=== PATIENT | male | born 1960 | race African-American/Black ===

== ENCOUNTER 2019-03-25 09:39 | Emergency (ER) | payer MEDICAID, OTHER ==
[2019-03-25 10:20] VITALS: BP 112/82
--- NOTE | 2019-03-25 10:42 | UC ---
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 Has had surgeries, has tried topical nitroglycerine and possibly bethanecol without relief of symptoms. Botox has failed. He plans to follow up in [place]. Passed a hard stool today without blood, with severe spasm to follow. 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 No vomiting. Regularly uses stool softeners and guards against constipation. - History of Current Complaint Chief Complaint: UCGI Stated Complaint: PERSONAL Time Seen by Provider: 03/25/19 10:33 Hx Obtained From: Patient Onset/Duration: Sudden Onset, Lasting Hours Timing: Constant Severity Initially: Severe Severity Currently: Severe Pain Intensity: 10 Location: Other - anal pain with radiation to the left scrotum Radiates: Yes Radiates to: Inguinal Character: Colicy, Cramping, Sharp Aggravating Factor(s): Movement Alleviating Factor(s): Position Associated Signs And Symptoms: Positive: Negative Similar Episode/Dx As:: anal spasm - Allergies/Home Medications Allergies/Adverse Reactions: Allergies Allergy/AdvReac Type Severity Reaction Status Date / Time onion Allergy "I can't Verified 03/25/19 10:13 breathe. Everything closes up." pineapple Allergy Hives Verified 03/25/19 10:13 Home Medications: Home Medications Ibuprofen TAB* [Advil TAB*] 800 mg PO Q8H PRN 03/25/19 [History Confirmed ] Methimazole TAB* [Tapazole TAB*] 5 mg PO TID 03/25/19 [History Confirmed ] Vitamin THERAPEUTIC TAB* [Theragran TAB*] 1 tab PO DAILY 03/25/19 [History Confirmed 03/25/19] PMH/Surg Hx/FS Hx/Imm Hx Previously Healthy: No Endocrine History: Hyperthyroidism Cancer History: Colorectal Cancer, Prostate Cancer, Other - liver cancer - Surgical History Surgical History: Yes Surgery Procedure, Year, and Place: Anal Fissure, 2018 2017; Cholecystectomy, 2014; Prostatectomy, 2009; Liver Lobectomy, 1994; - Family History Known Family History: Positive: Non-Contributory - Social History Occupation: Employed Full-time Lives: With Family - currently living in [place], assuming custody of his daughters, plans to return to [place]. Alcohol Use: None Substance Use Type: None Smoking Status (MU): Heavy Every Day Tobacco Smoker Type: Cigarettes Amount Used/How Often: ~1/2 PPD Length of Time of Smoking/Using Tobacco: Since Age 13 Review of Systems All Other Systems Reviewed And Are Negative: Yes Constitutional: Positive: Negative Skin: Positive: Negative Eyes: Positive: Negative ENT: Positive: Negative Gastrointestinal: Positive: Other - anal pain Genitourinary: Positive: Other - pain in left scrotal area. Musculoskeletal: Positive: Negative Neurological: Positive: Negative Psychological: Positive: Anxious Is Patient Immunocompromised?: No Physical Exam Triage Information Reviewed: Yes Appearance: Well-Appearing, Pain Distress - moderate to severe, Thin Vital Signs: Initial Vital Signs Temp 97.7 F 03/25/19 10:11 Pulse 88 03/25/19 10:11 Resp 20 03/25/19 10:11 BP 112/82 03/25/19 10:11 Pulse Ox 100 03/25/19 10:11 Eye Exam: Normal Dental Exam: Normal Neck: Positive: Supple, Nontender Respiratory: Positive: Lungs clear, Normal breath sounds Cardiovascular: Positive: RRR, No Murmur Abdomen Description: Positive: Nontender, No Organomegaly, Soft, Other: - scars RUQ and midline Anal sphincter with increased tone, no mass, no stool in rectum. no blood obtained. No active fissure. Bowel Sounds: Positive: Present Musculoskeletal Exam: Normal Neurological Exam: Normal Abd Pain Male Course/Dx - Course Course Of Treatment: lorazepam given here for possible relief of spasm. Small number of oxycodone pills given. - Differential Dx/Clinical Impression Differential Diagnosis/HQI/PQRI: Constipation, Other - anal fissures, anal spasm Provider Diagnosis: Anal sphincter spasm, Anal fissure Discharge - Sign-Out/Discharge Documenting (check all that apply): Patient Departure All imaging exams completed and their final reports reviewed: No Studies - Discharge Plan Condition: Stable Disposition: HOME Prescriptions: LORazepam TAB(*) [Ativan 1 MG TAB (*)] 1 mg PO TID PRN #10 tab MDD 3 PRN Reason: Spasms oxyCODONE TAB* [Roxycodone TAB 5 mg*] 5 mg PO Q6H PRN #10 tab MDD 4 PRN Reason: Pain - Moderate To Severe Patient Education Materials: Anal Fissure (ED) Forms: *Work Release Referrals: No Primary Care Phys,NOPCP [Primary Care Provider] - - Billing Disposition and Condition Condition: STABLE Disposition: Home
[2019-03-25] MEDS ORDERED: Diazepam TAB(*) 5 MG PO ONE (10:53)
[2019-03-25] MEDS: LORazepam TAB(*) 1 MG PO ONE (11:02)
== END 2019-03-25 11:18 | disposition home or self-care (01) ==
LOC: UCCORT 09:39
DX: K59.4 Anal spasm (principal); K60.2 Anal fissure, unspecified; F17.210 Nicotine dependence, cigarettes, uncomplicated; Z85.038 Personal history of other malignant neoplasm of large intestine; Z85.048 Personal history of other malignant neoplasm of rectum, rectosigmoid junction, and anus; Z85.46 Personal history of malignant neoplasm of prostate; Z85.05 Personal history of malignant neoplasm of liver
CPT/HCPCS: 99202; A9270-GY; G0463

== ENCOUNTER 2019-04-26 14:34 | Emergency (ER) | payer OTHER ==
[2019-04-26 15:03] VITALS: BP 157/73
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
== END 2019-04-26 15:31 | disposition home or self-care (01) ==
LOC: UCCORT 14:34
DX: L02.01 Cutaneous abscess of face (principal); Z91.018 Allergy to other foods; F17.210 Nicotine dependence, cigarettes, uncomplicated
CPT/HCPCS: 99212; G0463

== ENCOUNTER 2019-05-06 11:30 | Emergency (ER) | payer OTHER ==
--- OUTSIDE RECORDS SUMMARY | 2019-05-06 11:39 | XMS REPORT | Continuity of Care Document ---
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 LORRAINE montgomery PayID: [id number] [address] [place] [address] Family History Date Family Member(s) Observation Comments : (age 97 Years) Father due to Lung Cancer : (age 102 Years) Mother due to Natural Causes Social History Type Date Description Comments Sex Unknown Tobacco Use Start: Unknown currently smokes 1/2 Pack Daily ETOH Use Denies alcohol use Allergies, Adverse Reactions, Alerts Description No Known Drug Allergies Medications Description No Active Medications Vital Signs Date Vital Result Comment 04/30/2019 10:21am Weight 169.00 lb Height 71 inches 5'11" BMI (Body Mass Index) 23.6 kg/m2 BP Systolic 111 mmHg BP Diastolic 66 mmHg Heart Rate 69 /min O2 % BldC Oximetry 97 % Body Temperature 98.6 F Pain Level 0
--- OUTSIDE RECORDS SUMMARY | 2019-05-06 11:39 | XMS REPORT | Continuity of Care Document ---
:1960 External Reference #:[id number] Author Name Nasir Briceño Care Team Providers Name Role Phone Arie De La Torre M.D. Care Team Information Drafter Electronic Unavailable Payers Date Identification Numbers Payment Provider Subscriber Policy Number: [id number] Rafi Cabrera PayID: [id number] [address] [place] [address] Problems Active Problems Provider Date Cellulitis and abscess of face Arie De La Torre M.D. 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 Tobacco Use Start: Unknown Current Cigarette Smoker 1 Pack Daily Allergies, Adverse Reactions, Alerts Description No Known Drug Allergies Medications Active Medications SIG Qnty Indications Ordering Provider Date Fluoxetine HCL Take One Capsule By Unknown 20mg Mouth Every Morning Capsules For Depression And Anxiety Hydroxyzine HCL Take 1 2 Tablets By Unknown 25mg Mouth Two Times A Tablets Day as Needed For Anxiety Panic Attacks Prazosin HCL Take 1 Capsule By Unknown 1mg Mouth For 3 Days Capsules Then Try Increased Dose Take 1 3 Capsules By Mouth AT Bedtime as Directed For Nightmares Vital Signs Date Vital Result Comment 04/27/2019 3:35pm Height 71 inches 5'11" Weight 175.00 lb Heart Rate 68 /min BP Systolic 128 mmHg BP Diastolic 80 mmHg Respiratory Rate 18 /min Pain Level 8 BMI (Body Mass Index) 24.4 kg/m2 Plan of Treatment 04/27/2019 - Arie De La Torre M.D.[id number] Cellulitis of faceComments:Patient on Keflex, acute cellulitis. No evidence of abscess. I would wait 36-48 hours to decide ifanything else needs to be done he may need modification of his antibiotics. The Cultures Done Yesterday. Otherwise Recheck When Necessary
--- NOTE | 2019-05-06 12:08 | ED ---
GI/ HPI - HPI Summary HPI Summary: 58 yr old male with the complaint of rectal pain, testicular pain. Onset this morning when he had a BM. He has a history of anal fissure. His pain is 10/10 , and he cannot get comfortable. He has associated nausea, but not vomiting. No diarrhea. He has had pain since BM this morning that has gotten progressivley worse. He has a history of colon cancer, and prostate cancer with liver cancer. He is from [place], [place]. Denies fever and chills. - History of Current Complaint Chief Complaint: UCSkin Time Seen by Provider: 05/06/19 11:51 Stated Complaint: PERSONAL Pain Intensity: 10 - Allergy/Home Medications Allergies/Adverse Reactions: Allergies Allergy/AdvReac Type Severity Reaction Status Date / Time onion Allergy "I can't Verified 04/26/19 14:56 breathe. Everything closes up." pineapple Allergy Hives Verified 04/26/19 14:56 Home Medications: Home Medications Clindamycin HCl 150 mg PO TID 05/06/19 [History Confirmed 05/06/19] PMH/Surg Hx/FS Hx/Imm Hx Endocrine/Hematology History: Reports: Hx Thyroid Disease - Hyperthyroidism - Cancer History Cancer Type, Location and Year: Colon 2011, Prostate 2009, Liver 1994 - Surgical History Surgery Procedure, Year, and Place: Anal Fissure, 2018 2017; Cholecystectomy, 2014; Prostatectomy, 2009; Liver Lobectomy, 1994; Infectious Disease History: No Infectious Disease History: Denies: Traveled Outside the [place] in Last 30 Days - Family History Known Family History: Positive: Non-Contributory - Social History Occupation: Employed Part-time Alcohol Use: Rare Substance Use Type: Reports: None Smoking Status (MU): Heavy Every Day Tobacco Smoker Type: Cigarettes Amount Used/How Often: ~1/2 PPD Length of Time of Smoking/Using Tobacco: Since Age 13 Have You Smoked in the Last Year: Yes Review of Systems Constitutional: Negative Positive: Nausea, Other - rectal pain Positive: other - testicular pain All Other Systems Reviewed And Are Negative: Yes Physical Exam Triage Information Reviewed: Yes Vital Signs On Initial Exam: Initial Vitals Temp Pulse Resp BP Pulse Ox 98.1 F 81 20 136/55 100 05/06/19 11:39 05/06/19 11:39 05/06/19 11:39 05/06/19 11:39 05/06/19 11:39 Vital Signs Reviewed: Yes Appearance: Positive: Pain Distress Skin: Positive: Warm, Skin Color Reflects Adequate Perfusion Head/Face: Positive: Normal Head/Face Inspection Eyes: Positive: EOMI ENT: Positive: Normal ENT inspection Neck: Positive: Nontender Respiratory/Lung Sounds: Positive: Clear to Auscultation, Breath Sounds Present Cardiovascular: Positive: RRR. Negative: Murmur Abdomen Description: Positive: Nontender, Other: - rectal exam without any obvious fissure or hemmeroids. He has tenderness in the rectum on digital exam. No stool or blood seen on glove.. Negative: Distended Male Genital Exam: Positive: Other - both testicles are without tenderness, no swelling.. Negative: Scrotum Tenderness (R), Scrotum Tenderness (L), Testicular Tenderness (R), Testicular Tenderness (L) Musculoskeletal: Positive: Strength/ROM Intact Neurological: Positive: Sensory/Motor Intact, Alert, Oriented to Person Place, Time, CN Intact II-III, Normal Gait, Speech Normal Psychiatric: Positive: Normal Diagnostics - Vital Signs Vital Signs Temp Pulse Resp BP Pulse Ox 05/06/19 11:39 98.1 F 81 20 136/55 100 - Laboratory Lab Statement: Any lab studies that have been ordered have been reviewed, and results considered in the medical decision making process. GIGU Course/Dx - Course Course Of Treatment: 58 yrold with rectal pain and testicular pain. Transfer to [facility] for further evaluation. I have called the [facility] and await . Provider, Cristal has been contacted at the [facility] and they are awaiting the patient. - Diagnoses Provider Diagnoses: Rectal pain, Testicular pain, unspecified Discharge - Sign-Out/Discharge Documenting (check all that apply): Patient Departure All imaging exams completed and their final reports reviewed: No Studies - Discharge Plan Condition: Good Disposition: TRANS HIGHER LVL OF CARE FAC Referrals: No Primary Care Phys,NOPCP [Primary Care Provider] - - Billing Disposition and Condition Condition: GOOD Disposition: Trans Higher Lvl of Care Fac
[2019-05-06 12:19] VITALS: BP 124/93
== END 2019-05-06 12:16 | disposition short-term general hospital (02) ==
LOC: UCCORT 11:30
DX: K62.89 Other specified diseases of anus and rectum (principal); N50.812 Left testicular pain; N50.811 Right testicular pain; Z85.038 Personal history of other malignant neoplasm of large intestine; Z85.46 Personal history of malignant neoplasm of prostate; Z85.05 Personal history of malignant neoplasm of liver; F17.210 Nicotine dependence, cigarettes, uncomplicated
CPT/HCPCS: 99213; G0463

== ENCOUNTER 2019-08-27 22:26 | Observation (INO) | payer OTHER ==
--- NOTE | 2019-08-27 23:40 | ED ---
Seizure - HPI Summary HPI Summary: Patient transferred from [place] for further evaluation of new onset seizures 2. No prior history of seizures. Patient was found unresponsive at home by family and taken by EMS to:. Patient states he remembers "coming to" at [facility], and remembers the EMS ride here to [place]. Patient is alert and oriented responding appropriately. Patient complains only of being tired. Denies fever, cough, sore throat, CP, SOB, N/3/D, abdominal pain, change in urine, change in BM. Medical history is current colon cancer, states not currently being treated. Patient states he does not see a doctor very often. Denies EtOH or recreational drug use. - History Of Current Complaint Chief Complaint: EDSeizure Time Seen by Provider: 08/27/19 22:52 Hx Obtained From: Patient Onset/Duration: Sudden Onset Severity Of Seizure: Self-Limited Character: Generalized Tonic Alleviating Factor(s): Spontaneous Resolution - Allergies/Home Medications Allergies/Adverse Reactions: Allergies Allergy/AdvReac Type Severity Reaction Status Date / Time onion Allergy "I can't Verified 04/26/19 14:56 breathe. Everything closes up." pineapple Allergy Hives Verified 04/26/19 14:56 PMH/Surg Hx/FS Hx/Imm Hx Endocrine/Hematology History: Reports: Hx Thyroid Disease - Hyperthyroidism Cardiovascular History: Denies: Hx Pacemaker/ICD History: Denies: Hx Dialysis Sensory History: Denies: Hx Eye Prosthesis Opthamlomology History: Denies: Hx Legally Blind EENT History: Denies: Hx Deafness Neurological History: Denies: Hx Dementia - Cancer History Cancer Type, Location and Year: Colon 2011, Prostate 2009, Liver 1994 - Surgical History Surgery Procedure, Year, and Place: Anal Fissure, 2018 2017; Cholecystectomy, 2014; Prostatectomy, 2009; Liver Lobectomy, 1994; Infectious Disease History: No Infectious Disease History: Denies: Traveled Outside the [place] in Last 30 Days - Family History Known Family History: Positive: Non-Contributory - Social History Alcohol Use: None Substance Use Type: Reports: None Smoking Status (MU): Heavy Every Day Tobacco Smoker Type: Cigarettes Amount Used/How Often: ~1/2 PPD Length of Time of Smoking/Using Tobacco: Since Age 13 Have You Smoked in the Last Year: Yes Review of Systems Positive: Fatigue Eyes: Negative ENT: Negative Cardiovascular: Negative Respiratory: Negative Gastrointestinal: Negative Genitourinary: Negative Musculoskeletal: Negative Skin: Negative Neurological: Negative Psychological: Normal All Other Systems Reviewed And Are Negative: Yes Physical Exam - Summary Physical Exam Summary: Neuro exam normal. Patient alert, coherent and oriented. Triage Information Reviewed: Yes Vital Signs On Initial Exam: Initial Vitals Temp Pulse Resp BP Pulse Ox 99.3 F 99 19 108/66 98 08/27/19 22:26 08/27/19 22:26 08/27/19 22:26 08/27/19 22:26 08/27/19 22:26 Vital Signs Reviewed: Yes Appearance: Positive: Well-Appearing Skin: Positive: Warm Head/Face: Positive: Normal Head/Face Inspection Eyes: Positive: Normal ENT: Positive: Normal ENT inspection Dental: Negative: Dental Fracture @, Bleeding Neck: Positive: Supple Respiratory/Lung Sounds: Positive: Clear to Auscultation Cardiovascular: Positive: Normal Abdomen Description: Positive: Nontender Musculoskeletal: Positive: Normal Neurological: Positive: Normal Psychiatric: Positive: Normal AVPU Assessment: Alert - Evi Coma Scale Best Eye Response: 4 - Spontaneous Best Motor Response: 6 - Obeys Commands Best Verbal Response: 5 - Oriented Coma Scale Total: 15 Procedures - Sedation Patient Received Moderate/Deep Sedation with Procedure: No Diagnostics - Vital Signs Vital Signs Temp Pulse Resp BP Pulse Ox 08/27/19 23:00 76 32 100/59 95 08/27/19 22:32 96 15 97 08/27/19 22:30 96 108/66 97 08/27/19 22:26 99.3 F 99 19 108/66 98 - Laboratory Result Diagrams: 08/28/19 00:20 08/28/19 00:20 Lab Statement: Any lab studies that have been ordered have been reviewed, and results considered in the medical decision making process. Course/Dx - Course Course Of Treatment: Patient transferred from [place] for further evaluation of new onset seizures 2. No prior history of seizures. Patient was found unresponsive at home by family and taken by EMS to:. Patient states he remembers "coming to" at [facility], and remembers the EMS ride here to [place]. Patient is alert and oriented responding appropriately. Patient complains only of being tired. Denies fever, cough, sore throat, CP, SOB, N/3/D , abdominal pain, change in urine, change in BM. Medical history is current colon cancer, states not currently being treated. Patient states he does not see a doctor very often. Denies EtOH or recreational drug use. Vital signs within normal limits. Labs unremarkable. No further seizures here in the ED. Discussed patient with neurology Dr. Mensah who recommended admission to hospitalist for further evaluation. Patient admitted to hospitalist for further evaluation. - Diagnoses Provider Diagnoses: Seizure Discharge ED - Sign-Out/Discharge Documenting (check all that apply): Patient Departure - Discharge Plan Condition: Stable Disposition: ADMITTED TO [facility] Referrals: No Primary Care Phys,NOPCP [Primary Care Provider] - - Billing Disposition and Condition Condition: STABLE Disposition: Admitted to [facility]
[2019-08-28 00:29] LABS: ABS Eosinophils 0.2 10^3/ul (0-0.6); ABS Lymphocytes 2.3 10^3/ul (1.0-4.8); ABS Monocytes 0.3 10^3/ul (0-0.8); Eosinophil % 5.9 %; Hematocrit 41 % (42-52); Hemoglobin 13.1 g/dL (14.0-18.0); Lymphocyte % 58.3 %; Mean Corpuscular HGB Conc 32 g/dL (31-36); Mean Corpuscular Hemoglobin 26 pg (27-31); Mean Corpuscular Volume 81 fL (80-94); Mean Platelet Volume 8.9 fL (7.4-10.4); Nucleated Red Blood Cells % 0.3; Platelet Count 175 10^3/uL (150-450); Red Blood Count 5.08 10^6 /uL (4.18-5.48); Red Cell Distribution Width 14 % (10-15); White Blood Count 3.9 10^3/uL (3.5-10.8)
[2019-08-28 00:45] LABS: ALT 34 U/L (7-52); AST 18 U/L (13-39); Albumin 3.4 g/dL (3.2-5.2); Albumin/Globulin Ratio 1.7 (1-3); Alkaline Phosphatase 146 U/L (34-104); Anion Gap 4 mmol/L (2-11); BUN/Creatinine Ratio 17.3 (8-20); Blood Urea Nitrogen 14 mg/dL (6-24); C Reactive Protein 6.88 mg/L (<8.01); CO2 Carbon Dioxide 27 mmol/L (22-32); Calcium 8.9 mg/dL (8.6-10.3); Chloride 109 mmol/L (101-111); EGFR Non-African American 97.5 (>60); Glucose 102 mg/dL (70-100); Phosphorus 4.4 mg/dL (2.5-5.0); Potassium 3.9 mmol/L (3.5-5.0); Sodium 140 mmol/L (135-145); Total Protein 5.4 g/dL (6.4-8.9)
[2019-08-28 00:53] LABS: Alcohol < 10 mg/dL (<10); Salicylate < 2.50 mg/dL (<30)
[2019-08-28 01:45] LABS: Acetaminophen < 15 mcg/mL
[2019-08-28] MEDS ORDERED: NS 0.9% 1000 ML** 1,000 ML IV SCH (02:30)
[2019-08-28 03:13] LABS: Free T4 3.76 ng/dL (0.61-1.12)
--- NOTE | 2019-08-28 05:12 | HP ---
ADMISSION HISTORY AND PHYSICAL: DATE OF ADMISSION: 08/28/19 CHIEF COMPLAINT: Found in altered mental status. HISTORY OF PRESENT ILLNESS: This is a 58-year-old male with past medical history of liver cancer; prostate cancer, for which he received some chemotherapy in the past; colon cancer; and history of hyperthyroidism, was sent from [facility] due to new onset seizure. The patient was apparently found unresponsive per his daughter. Last known well was about 7 a.m. when he was texting her, stating that he was not feeling well but otherwise no complaints. At 3 a.m. when the daughter went home and checked on him, she noticed that the patient was unresponsive and there was vomit right next to the door, and he was not speaking or following any commands. So, he was sent to the [facility]. Upon arrival to the ER, the patient had another episode of seizure with rhythmic movements of upper extremity, so he received a dose of Ativan. This was around 5 p.m., and by 7 p.m., the patient was awake, alert, asking for something to drink; however the hospitalist, when consulted, suggested the patient to be transferred to either [facility] or another [facility] facility where there is a neurologist available. The transfer center spoke with Dr. Mensah, Neurology at [facility], who accepted the patient to [facility] and recommended the patient to be started on Keppra. The patient himself at this point denies any complaints such as chest pain, shortness of breath, any headache, numbness, tingling, weakness, abdominal pain, nausea, vomiting, or diarrhea. His main complaint is that he was hungry and wanted to eat. PAST MEDICAL HISTORY: As per documentation, the patient does have a history of some what was documented as liver cancer; prostate cancer, for which he had prostatectomy; hyperthyroidism is his only diagnosis for which he takes medications at this point. He also had a previous history of colon cancer stage III per documentation. PAST SURGICAL HISTORY: Includes prostatectomy, right eye surgery, double hernia repair, 2 anal fistula repairs. HOME MEDICATIONS: The patient stated that he is only taking methimazole 5 mg oral t.i.d. as the only current medication. ALLERGIES: The patient is documented to be allergic to onion and pineapple. FAMILY HISTORY: Noncontributory. SOCIAL HISTORY: The patient does smoke about a pack a day for the last 20 years. He states that he usually drinks about 1 to 2 drinks in a year. Drug abuse: The patient has tried cocaine and marijuana, both of which he does via smoking, never tried any IV. His last use of cocaine and marijuana that he smoked was about 2 days ago. 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 REVIEW OF SYSTEMS: A 14-point review of systems did not reveal any new information other than what is mentioned in the HPI. PHYSICAL EXAMINATION GENERAL: The patient is awake, alert, oriented to time, place, and person; did not appear to be in any acute respiratory distress. VITAL SIGNS: In the ER, temperature was recorded at 99.3, BP was 109/67, heart rate 84, respiration rate 14, saturating at 97% on room air. HEAD AND NECK: Atraumatic, normocephalic. Bilateral pupils are reactive. Oral mucosa is moist. NECK: Supple. No jugular venous distention. LUNGS: Clear to auscultation bilaterally. No wheezing, rhonchi, or rales. HEART: S1 and S2. Regular rate and rhythm. ABDOMEN: Soft, nontender with previous surgical scars. EXTREMITIES: No cyanosis, clubbing or edema. DIAGNOSTIC STUDIES/LAB DATA: CBC was unremarkable. Comprehensive metabolic panel was unremarkable except for minimally elevated random ammonia at 57. TSH was noted to be 0. LFTs were within normal limits except for minimally elevated alkaline phosphatase at 146. Urine toxicology was negative for any alcohol, acetaminophen, or salicylate; however, urine tox from [facility] facility was positive for cocaine and negative for any cannabinoids. CT brain was read as no active disease from [facility] and the report from chest x-ray was also read as no acute disease. IMPRESSION: This is a 58-year-old gentleman with a history of hyperthyroidism and multiple cancers, comes in due to recurrent seizures, one probably at home and another one in the ER at [facility], started on Keppra. ASSESSMENT: 1. New onset seizure. We will start the patient on Keppra as recommended by Neurology and place the patient on seizure precaution along with EEG study for the morning. We will also consult Dr. Mensah, who knows the case to see if any MRI would be beneficial especially given his history of malignancies. 2. History of hyperthyroidism, on methimazole; however, the TSH was noted to be 0. We will get a free T4 level. If elevated, we could consider either increasing the dose of methimazole or consulting Endocrinology to evaluate the patient. 3. History of multiple cancers. 4. History of cocaine abuse along with marijuana. 5. DVT prophylaxis with sequential compression device. 6. Code status: Full code with the girlfriend being the healthcare proxy. [id number]/[facility] #: [id number] [facility]
[2019-08-28] MEDS ORDERED: levETIRAcetam 500 MG IVPREMIX* 500 MG/100 ML BAG IV SCH (07:30)
[2019-08-28] MEDS ORDERED: Influenza VAC *QUAD* 2019-20* 0.5 ML SYRINGE IM ONE (09:00)
[2019-08-28] MEDS: Methimazole TAB* 5 MG PO SCH ×3 (09:34→19:40)
[2019-08-28 11:33] LABS: Urine Appearance Cloudy; Urine Bilirubin Negative (Negative); Urine Blood Negative (Negative); Urine Color Yellow; Urine Glucose Negative (Negative); Urine Ketones Negative (Negative); Urine Nitrite Negative (Negative); Urine Protein Negative (Negative); Urine Specific Gravity 1.015 (1.010-1.030); Urine Urobilinogen Negative (Negative)
[2019-08-28 11:36] LABS: Urine Benzodiazepine Screen None Detected (None Detect); Urine Opiates Screen None Detected (None Detect)
[2019-08-28] MEDS ORDERED: Docusate CAP* 100 MG PO PRN (12:21)
[2019-08-28] MEDS: Acetaminophen TAB* 325 MG PO PRN (12:33)
[2019-08-28] MEDS: Nicotine PATCH 14 MG/24 HR* PATCH TRANSDERM SCH (12:33)
--- NOTE | 2019-08-28 13:20 | CONS ---
CONSULTATION REPORT: DATE OF CONSULT: 08/28/19 PATIENT OF: Dr. Wang. HISTORY OF PRESENT ILLNESS: This is a 58-year-old man with a history of liver cancer, prostate cancer and most recently colon cancer, status post surgery for that and recently within the past several weeks just finished a course of chemotherapy. He has had no prior seizures or unresponsive spells or any episodes of suggested seizures up until yesterday. Yesterday, he was texting his daughter at 7 in the morning and stated that he did not feel well and then later the daughter went to check on him and found that he was unresponsive, there was vomit next to the door and he was not following any commands. He was sent to [facility] and had an episode of rhythmic jerking of his upper extremities and this occurred about 5 p.m. and he had a postictal period, which resolved within a couple of hours' time. I was called and at that point, he was awake and alert. I recommended that he be started on Keppra and I accepted him in transfer. I was told that the CT scan was normal and I had asked that the CT scan be loaded on a disc and sent. PAST MEDICAL HISTORY: He has had liver cancer; prostate cancer, status post prostatectomy; hyperthyroidism; and stage III colon cancer. PAST SURGICAL HISTORY: He has had a history of prostatectomy, right eye surgery , double herniorrhaphy, fistula repairs. MEDICATIONS: His only current medicine is methimazole 5 mg t.i.d. ALLERGIES: He is allergic to onion and pineapple. FAMILY HISTORY: Noncontributory. SOCIAL HISTORY: He smokes a pack a day for the past 20 years' time and drinks 1 to 2 drinks in a year. He told me that he smoked marijuana 2 days ago. He has taken cocaine in the past, but not recently. 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 REVIEW OF SYSTEMS: Negative in all 14 spheres other than rectal pain that has been persistent and led to the colon cancer. PHYSICAL EXAM: Temperature 98.5, pulse 86, respirations 16, blood pressure 113/ 54. He was alert and oriented with normal speech and comprehension. Cranial nerves II through XII were intact. Fundi were benign. Motor exam revealed normal tone and strength. No pronator drift. Romberg was slightly unsteady. Reflexes were 1 and equal, trace ankle jerks, downgoing toes. Neck was supple. Chest: Clear. Cardiovascular: Regular rate and rhythm. Abdomen was soft with positive bowel sounds. DIAGNOSTIC STUDIES/LAB DATA: I checked his paper chart here. There was no CT disc. A CT was read as no active disease. His urine was positive for cocaine and negative for any cannabinoids and his urine toxicology was otherwise negative. His TSH was 0. His ammonia was 57. CBC here was unremarkable. Free T4 was 3.76. CMP was otherwise normal. Calcium was 8.9. Magnesium is 2.0. IMPRESSION AND PLAN: I discussed with [place] that he has had new onset of seizures and that it is unclear what the etiology is as he needs an MRI scan with and without contrast given his history of cancer. It is clear that he has seizures and needs to be on Keppra for now. I will increase the dose to 750 twice a day. At some point, he will need an EEG, but this is not an acute situation. He will be observed for further and then followup will be outpatient. I discussed that he is unable to drive at this point and that since he drives he truck, he may need an occupational medicine evaluation as well when it comes closer to the time for him to drive to try to get that particular license restored. I discussed seizure precautions with him. Thank you for sharing his case. [id number]/[facility] #: [id number] LINDA
--- NOTE | 2019-08-28 16:49 | PN ---
Subjective Date of Service: 08/28/19 Interval History: Brief update. Admitted this AM. Denies further seizures after transfer from [facility]. Reports feeling back to baseline. Had some anal pain after passing hard stool today - reports history of anal fissure. Requests stool softener, Tylenol, and nicotine patch. Objective Active Medications: Acetaminophen (Tylenol Tab*) 975 mg PO Q8H PRN PRN Reason: Pain - Mild to Mod Last Admin: 08/28/19 12:33 Dose: 975 mg Docusate Sodium (Colace Cap*) 100 mg PO BID PRN PRN Reason: CONSTIPATION Levetiracetam (Keppra Iv Premix*) 500 mg in 100 mls @ 400 mls/hr IV Q12H [facility] Last Admin: 08/28/19 08:16 Dose: 400 mls/hr Methimazole (Tapazole Tab*) 5 mg PO TID [facility] Last Admin: 08/28/19 14:47 Dose: 5 mg Nicotine (Nicotine Patch 14 Mg/24 Hr*) 1 patch TRANSDERM DAILY [facility] Last Admin: 08/28/19 12:33 Dose: 1 patch Pharmacy Profile Note (Nicotine Patch Removal Note*) 1 note PATCH OFF 2100 [facility] Vital Signs - 8 hr 08/28/19 08/28/19 11:10 15:50 Temperature 98.2 F 98.2 F Pulse Rate 81 87 Respiratory 16 18 Rate Blood Pressure 145/68 112/59 (mmHg) O2 Sat by Pulse 100 100 Oximetry Oxygen Devices in Use Now: None Appearance: well appearing man in NAD Eyes: No Scleral Icterus Ears/Nose/Mouth/Throat: Clear Oropharnyx, Mucous Membranes Moist Neck: NL Appearance and Movements; NL JVP, Trachea Midline Respiratory: Symmetrical Chest Expansion and Respiratory Effort, Clear to Auscultation Cardiovascular: NL Sounds; No Murmurs; No JVD, RRR Abdominal: NL Sounds; No Tenderness; No Distention, No Hepatosplenomegaly Extremities: No Edema Skin: No Rash or Ulcers Neurological: Alert and Oriented x 3, NL Sensation, NL Muscle Strength and Tone Result Diagrams: 08/28/19 00:20 08/28/19 00:20 Assess/Plan/Problems-Billing Assessment: 58M with hyperthyroidism, prostate/colon/liver cancer (per pt), presents after new-onset of seizures. - Patient Problems (1) Seizure SNOMED Code(s): 66753495 Comment: New onset. Concerning for brain met given sig cancer history. - appreciate neuro recs - pending MRI brain w/wo contrast - pending EEG - cont Keppra - cont seizure precautions (2) Hyperthyroidism Comment: cont home methimazole 5 tid (3) Anal fissure Comment: chronic issue docusate fiber water tylenol prn (4) Tobacco use Comment: nrt encourage cessation (5) DVT prophylaxis Current Visit: Yes Status: Acute Code(s): Z29.9 - ENCOUNTER FOR PROPHYLACTIC MEASURES, UNSPECIFIED SNOMED Code(s): 823185569 Comment: enoxaparin
[2019-08-28] MEDS: Enoxaparin(*) 40 MG/0.4 ML SYR SUBCUT SCH (17:46)
[2019-08-28] MEDS: levETIRAcetam TAB* 500 MG PO SCH (19:39)
[2019-08-28] MEDS: Nicotine Patch Removal NOTE PATCH OFF SCH (19:41)
[2019-08-29] MEDS: levETIRAcetam TAB* 500 MG PO SCH ×2 (10:24→21:02)
[2019-08-29] MEDS: Methimazole TAB* 5 MG PO SCH ×3 (10:26→21:03)
[2019-08-29] MEDS: Nicotine PATCH 14 MG/24 HR* PATCH TRANSDERM SCH (10:26)
[2019-08-29] MEDS: Acetaminophen TAB* 325 MG PO PRN (10:42)
[2019-08-29] MEDS ORDERED: Lidocaine 2% JELLY* 6 ML JELLY TOPICAL PRN (12:42)
--- NOTE | 2019-08-29 14:20 | PN ---
Subjective Date of Service: 08/29/19 Interval History: No acute events. No further seizures. Pt with persistent anal pain. Reports he' s been dealing with this since 2011 and has had colonoscopies during this time. Objective Active Medications: Acetaminophen (Tylenol Tab*) 975 mg PO Q8H PRN PRN Reason: Pain - Mild to Mod Last Admin: 08/29/19 10:42 Dose: 975 mg Docusate Sodium (Colace Cap*) 100 mg PO BID [facility] Enoxaparin Sodium (Lovenox(*)) 40 mg SUBCUT Q24H [facility] Last Admin: 08/28/19 17:46 Dose: 40 mg Levetiracetam (Keppra Tab*) 750 mg PO BID [facility] Last Admin: 08/29/19 10:24 Dose: 750 mg Lidocaine HCl (Lidocaine 2% Jelly*) 1 applic TOPICAL TID PRN PRN Reason: anal pain Methimazole (Tapazole Tab*) 5 mg PO TID [facility] Last Admin: 08/29/19 10:26 Dose: 5 mg Nicotine (Nicotine Patch 14 Mg/24 Hr*) 1 patch TRANSDERM DAILY [facility] Last Admin: 08/29/19 10:26 Dose: 1 patch Pharmacy Profile Note (Nicotine Patch Removal Note*) 1 note PATCH OFF 2100 [facility] Last Admin: 08/28/19 19:41 Dose: 1 note Vital Signs - 8 hr 08/29/19 08/29/19 07:21 10:34 Temperature 97.6 F Pulse Rate 71 Respiratory 18 18 Rate Blood Pressure 106/73 (mmHg) O2 Sat by Pulse 100 Oximetry Oxygen Devices in Use Now: None Appearance: well appearing man in NAD, alert and interactive Eyes: No Scleral Icterus Ears/Nose/Mouth/Throat: Clear Oropharnyx, Mucous Membranes Moist Neck: NL Appearance and Movements; NL JVP, Trachea Midline Respiratory: Symmetrical Chest Expansion and Respiratory Effort, Clear to Auscultation Cardiovascular: NL Sounds; No Murmurs; No JVD, RRR Abdominal: NL Sounds; No Tenderness; No Distention, No Hepatosplenomegaly Extremities: No Edema Skin: No Rash or Ulcers Neurological: Alert and Oriented x 3, NL Muscle Strength and Tone Result Diagrams: 08/28/19 00:20 08/28/19 00:20 Assess/Plan/Problems-Billing Assessment: 58M with hyperthyroidism, prostate/colon/liver cancer (per pt), presents after new-onset of seizures. - Patient Problems (1) Seizure SNOMED Code(s): 11008211 Comment: New onset. Concerning for brain met given sig cancer history. - appreciate neuro recs - pending MRI brain w/wo contrast - pending EEG - cont Keppra - cont seizure precautions (2) Hyperthyroidism Comment: cont home methimazole 5 tid (3) Anal fissure Comment: chronic issue - Sitz baths, docusate, fiber, water - tylenol prn, got naproxen today, declined lidocaine gel (4) Tobacco use Comment: nrt encourage cessation (5) DVT prophylaxis Current Visit: Yes Status: Acute Code(s): Z29.9 - ENCOUNTER FOR PROPHYLACTIC MEASURES, UNSPECIFIED SNOMED Code(s): 970234007 Comment: enoxaparin
[2019-08-29] MEDS ORDERED: Naproxen TAB* 250 MG PO ONE (15:41)
[2019-08-29] MEDS: Enoxaparin(*) 40 MG/0.4 ML SYR SUBCUT SCH (17:42)
[2019-08-29] MEDS: Docusate CAP* 100 MG PO SCH (21:02)
[2019-08-29] MEDS: Nicotine Patch Removal NOTE PATCH OFF SCH (21:03)
[2019-08-30] MEDS: Nicotine PATCH 14 MG/24 HR* PATCH TRANSDERM SCH (08:10)
[2019-08-30] MEDS: Acetaminophen TAB* 325 MG PO PRN (08:12)
[2019-08-30] MEDS: levETIRAcetam TAB* 500 MG PO SCH ×2 (08:13→19:50)
[2019-08-30] MEDS: Docusate CAP* 100 MG PO SCH ×2 (08:13→19:50)
[2019-08-30] MEDS: Methimazole TAB* 5 MG PO SCH ×3 (08:14→19:50)
[2019-08-30] MEDS: Psyllium PAK PO SCH (11:51)
[2019-08-30] MEDS ORDERED: Naproxen TAB* 250 MG PO ONE (12:09)
--- NOTE | 2019-08-30 15:19 | EEG ---
ELECTROENCEPHALOGRAPHY: DATE OF STUDY: 08/30/19 DATE READ: 08/30/19 DURATION: [id number] MEDICATIONS: 1. Colace. 2. Keppra. 3. Tapazole. 4. Nicotine. 5. Lovenox. 6. Tylenol. 7. Lidocaine gel. INDICATION: Mr. Cabrera is a 58-year-old man who was a transfer from [facility] after first onset seizure. The patient has a history of cocaine use and urine tox was positive for cocaine. This EEG was obtained to evaluate for epileptiform abnormalities or electrographic seizures. CLINICAL STATE: Awake and sleep. REPORT: The waking background showed appropriate organization with clearly defined anterior-posterior voltage improving gradients. There was a well- defined posterior dominant rhythm of 10 Hz, which was symmetrical and showed normal reactivity. Anteriorly, there was an expected pattern of lower voltage, irregular, mixed faster frequency. There were an isolated sharply contoured wave in the left frontal region maximal at the 7 that lined up with vertex waves in the central region. This is nonspecific finding of unclear etiology. Hyperventilation and photic stimulation were not performed. Single electrode EKG showed normal sinus rhythm with occasional PVCs. Attenuation of the occipital rhythm accompany drowsiness. The sleep background was appropriately organized with well developed spindles and vertex waves. CLINICAL IMPRESSION: This is an essentially normal awake and sleep EEG. There were clear epileptiform discharges or electrographic seizures. [id number]/[facility] #: [id number] [facility]
--- NOTE | 2019-08-30 15:20 | PN ---
Subjective Date of Service: 08/30/19 Interval History: No events. Still waiting on MRI read. Seen and evaluated by Neuro. EEG essentially normal. Intermittent anal pain but better. Request to self- administer enema. Objective Active Medications: Acetaminophen (Tylenol Tab*) 975 mg PO Q8H PRN PRN Reason: Pain - Mild to Mod Last Admin: 08/30/19 08:12 Dose: 975 mg Docusate Sodium (Colace Cap*) 200 mg PO BID [facility] Enoxaparin Sodium (Lovenox(*)) 40 mg SUBCUT Q24H [facility] Last Admin: 08/29/19 17:42 Dose: 40 mg Levetiracetam (Keppra Tab*) 750 mg PO BID [facility] Last Admin: 08/30/19 08:13 Dose: 750 mg Lidocaine HCl (Lidocaine 2% Jelly*) 1 applic TOPICAL TID PRN PRN Reason: anal pain Methimazole (Tapazole Tab*) 5 mg PO TID [facility] Last Admin: 08/30/19 14:37 Dose: 5 mg Nicotine (Nicotine Patch 14 Mg/24 Hr*) 1 patch TRANSDERM DAILY [facility] Last Admin: 08/30/19 08:10 Dose: 1 patch Pharmacy Profile Note (Nicotine Patch Removal Note*) 1 note PATCH OFF 2100 [facility] Last Admin: 08/29/19 21:03 Dose: 1 note Psyllium Hydrophilic Mucilloid (Metamucil Casey*) 1 pkt PO DAILY [facility] Last Admin: 08/30/19 11:51 Dose: 1 pkt Vital Signs - 8 hr 08/30/19 08/30/19 08:00 11:15 Temperature 97.7 F Pulse Rate 70 Respiratory 20 20 Rate Blood Pressure 126/70 (mmHg) O2 Sat by Pulse 99 Oximetry Oxygen Devices in Use Now: None Appearance: well appearing, nad Eyes: No Scleral Icterus Ears/Nose/Mouth/Throat: Clear Oropharnyx Neck: NL Appearance and Movements; NL JVP, Trachea Midline Respiratory: Clear to Auscultation Cardiovascular: NL Sounds; No Murmurs; No JVD, RRR Abdominal: NL Sounds; No Tenderness; No Distention, No Hepatosplenomegaly Skin: No Rash or Ulcers Neurological: Alert and Oriented x 3, NL Muscle Strength and Tone Result Diagrams: 08/28/19 00:20 08/28/19 00:20 Assess/Plan/Problems-Billing Assessment: 58M with hyperthyroidism, prostate/colon/liver cancer (per pt), presents after new-onset of seizures. - Patient Problems (1) Seizure SNOMED Code(s): 55428890 Comment: New onset. Concerning for brain met given sig cancer history. - appreciate neuro recs, currently thinking seizure could be from substance use - pending MRI brain w/wo contrast, if no mass, can d/c Keppra - cont Keppra - cont seizure precautions (2) Hyperthyroidism Comment: cont home methimazole 5 tid (3) Anal fissure Comment: chronic issue - Sitz baths, docusate, fiber, water - tylenol prn, got naproxen today, declined lidocaine gel (4) Tobacco use Comment: nrt encourage cessation (5) DVT prophylaxis Current Visit: Yes Status: Acute Code(s): Z29.9 - ENCOUNTER FOR PROPHYLACTIC MEASURES, UNSPECIFIED SNOMED Code(s): 042418199 Comment: enoxaparin
[2019-08-30] MEDS ORDERED: Sodium Phosphate ADULT ENEMA* 118 ml bottle PR ONE (15:45)
--- NOTE | 2019-08-30 16:38 | PN ---
Subjective Date of Service: 08/30/19 Length of Stay: 2 Days Neurology is following for seizures. Interval History: There has been no reported seizures since the hospitalization. He feels well and has no focal deficits. He has no sensory abnormalities. He has no history of seizures, febrile seizures, or family history of epilepsy. The patient's urine toxicology screen is positive for cocaine. He denied the use of cocaine lately but did state that he smoked marijuana recently and he was not sure if it was laced with cocaine. He is very frustrated about this and agreed to stop using marijuana. He is tolerating levetiracetam without any complications. The EEG today was unremarkable. He is still waiting on the MRI study. Review of Systems: Denied CP, SOB, or palpitations. Objective Active Medications: Acetaminophen (Tylenol Tab*) 975 mg PO Q8H PRN PRN Reason: Pain - Mild to Mod Last Admin: 08/30/19 08:12 Dose: 975 mg Docusate Sodium (Colace Cap*) 200 mg PO BID [facility] Enoxaparin Sodium (Lovenox(*)) 40 mg SUBCUT Q24H [facility] Last Admin: 08/29/19 17:42 Dose: 40 mg Levetiracetam (Keppra Tab*) 750 mg PO BID [facility] Last Admin: 08/30/19 08:13 Dose: 750 mg Lidocaine HCl (Lidocaine 2% Jelly*) 1 applic TOPICAL TID PRN PRN Reason: anal pain Methimazole (Tapazole Tab*) 5 mg PO TID [facility] Last Admin: 08/30/19 14:37 Dose: 5 mg Nicotine (Nicotine Patch 14 Mg/24 Hr*) 1 patch TRANSDERM DAILY [facility] Last Admin: 08/30/19 08:10 Dose: 1 patch Pharmacy Profile Note (Nicotine Patch Removal Note*) 1 note PATCH OFF 2100 [facility] Last Admin: 08/29/19 21:03 Dose: 1 note Psyllium Hydrophilic Mucilloid (Metamucil Casey*) 1 pkt PO DAILY [facility] Last Admin: 08/30/19 11:51 Dose: 1 pkt Vital Signs 08/29/19 08/29/19 08/29/19 19:15 20:00 23:15 Temperature 97.9 F 97.7 F Pulse Rate 84 69 Respiratory 14 14 16 Rate Blood Pressure 116/69 126/63 (mmHg) O2 Sat by Pulse 100 95 Oximetry 08/30/19 08/30/19 08/30/19 03:15 07:15 08:00 Temperature 97.9 F 97.7 F Pulse Rate 85 68 Respiratory 14 20 20 Rate Blood Pressure 121/70 117/93 (mmHg) O2 Sat by Pulse 99 99 Oximetry 08/30/19 08/30/19 11:15 15:15 Temperature 97.7 F 97.8 F Pulse Rate 70 75 Respiratory 20 16 Rate Blood Pressure 126/70 119/63 (mmHg) O2 Sat by Pulse 99 100 Oximetry Intake and Output Last 24 Hours 08/28/19 08/29/19 08/30/19 08/31/19 06:59 06:59 06:59 06:59 Intake Total 0 2152 2840 480 Output Total 0 Balance 0 2152 2840 480 Weight 154 lb 6.4 oz Intake: IV Fluids 927 NS (0.9%) 927 IVPB 105 Keppra 105 Oral 0 1120 2840 480 Output: Urine 0 Other: Estimated Void Medium Medium Medium # Voids 1 Oxygen Devices in Use Now: None Neurology Exam: General: Well nourished, well developed, and in no acute distress HEENT: Normocephelic/atraumatic, sclera anicteric, mucous membranes moist Neck: Supple Chest: Clear to auscultation bilaterally Cardiovascular: Regular rate and rhythm without murmurs, rubs, gallops Extremities: No clubbing, cyanosis, or edema Neurological Findings: Awake, alert, and oriented to person, place, and time. Speech: fluent without dysarthria, repetition intact Cranial Nerve: PERRL, EOM intact, VFF, no nystagmus, face symmetric bilaterally , facial sensation intact, hearing intact to finger rub bilaterally, palate elevates symmetrically, tongue midline, SCM and Trapezius s/s. Motor: s/s throughout, proximal and distal extremities x4 tone/bulk normal Sensation: intact to LT/PP bilaterally upper and lower extremities Deep Tendon Reflex: 2+ symmetric in the upper/lower extremities, Babinski - down going Finger to nose, rapid alternating movements intact without tremor, no dysdiadochokinesia Gait: intact with good arm swing and stride Result Diagrams: 08/28/19 00:20 08/28/19 00:20 Assessment/Plan Mr. Joselito Cabrera is a 58-year-old with history of cancer who is s/p chemotherapy recently who presented as a transfer from [place] for seizures. The patient had one seizure and was loaded with levetiracetam. The etiology for the seizures are most likely induced by cocaine or due to metastatic disease to the brain. The latter is less likely since the EEG did not show any focal abnormalities. If the MRI brain is normal and there is no evidence for metastatic brain disease, I recommend discontinuing levetiracetam. Seizure precautions were discussed with the patient. The patient agreed to stop all drug use including marijuana. I reiterated the [facility] rules and regulation regarding driving restriction after a seizure with a loss of consciousness. The patient will need to follow- up with my colleagues at [facility] Neurology before he is cleared to drive. Depending on any recurrence and the actual cause of the seizure, he may resume driving after he is seizure free for 6-12 months. I will continue to follow.
[2019-08-30] MEDS ORDERED: Gadoteridol* (CONTRAST) 279.3 MG/ML 10 ML IV ONE (18:35)
[2019-08-30] MEDS: Enoxaparin(*) 40 MG/0.4 ML SYR SUBCUT SCH (19:50)
[2019-08-30] MEDS: Nicotine Patch Removal NOTE PATCH OFF SCH (19:51)
[2019-08-31] MEDS: Psyllium PAK PO SCH (09:25)
[2019-08-31] MEDS: Methimazole TAB* 5 MG PO SCH (09:26)
[2019-08-31] MEDS: Nicotine PATCH 14 MG/24 HR* PATCH TRANSDERM SCH (09:27)
[2019-08-31] MEDS: Docusate CAP* 100 MG PO SCH (09:27)
--- NOTE | 2019-08-31 11:33 | PN ---
Subjective Date of Service: 08/31/19 Length of Stay: 3 Days Neurology is following for first onset seizures. Interval History: He has not had any seizures since admission. He is roaming the hallways. He has no complaints and wants to go home. He is aware of the driving restriction that was reiterated today. MRI brain with and without contrast was done last night and showed no acute intracranial abnormality or metastatic disease. Review of Systems: Denied CP, SOB, or palpitations. Objective Active Medications: Acetaminophen (Tylenol Tab*) 975 mg PO Q8H PRN PRN Reason: Pain - Mild to Mod Last Admin: 08/30/19 08:12 Dose: 975 mg Docusate Sodium (Colace Cap*) 200 mg PO BID [facility] Last Admin: 08/31/19 09:27 Dose: 200 mg Enoxaparin Sodium (Lovenox(*)) 40 mg SUBCUT Q24H [facility] Last Admin: 08/30/19 19:50 Dose: 40 mg Lidocaine HCl (Lidocaine 2% Jelly*) 1 applic TOPICAL TID PRN PRN Reason: anal pain Methimazole (Tapazole Tab*) 5 mg PO TID [facility] Last Admin: 08/31/19 09:26 Dose: 5 mg Nicotine (Nicotine Patch 14 Mg/24 Hr*) 1 patch TRANSDERM DAILY [facility] Last Admin: 08/31/19 09:27 Dose: 1 patch Pharmacy Profile Note (Nicotine Patch Removal Note*) 1 note PATCH OFF 2100 [facility] Last Admin: 08/30/19 19:51 Dose: 1 note Psyllium Hydrophilic Mucilloid (Metamucil Casey*) 1 pkt PO DAILY [facility] Last Admin: 08/31/19 09:25 Dose: 1 pkt Vital Signs 08/30/19 08/30/19 08/30/19 15:15 19:15 20:00 Temperature 97.8 F 97.3 F Pulse Rate 75 84 Respiratory 16 17 18 Rate Blood Pressure 119/63 138/69 (mmHg) O2 Sat by Pulse 100 100 Oximetry 08/30/19 08/31/19 08/31/19 23:15 03:15 07:15 Temperature 97.3 F 97.8 F 97.3 F Pulse Rate 76 73 66 Respiratory 16 18 20 Rate Blood Pressure 145/68 109/68 118/68 (mmHg) O2 Sat by Pulse 100 100 97 Oximetry Intake and Output Last 24 Hours 08/29/19 08/30/19 08/31/19 09/01/19 06:59 06:59 06:59 06:59 Intake Total 2152 2840 960 Balance 2152 2840 960 Weight 154 lb 6.4 oz Intake: IV Fluids 927 NS (0.9%) 927 IVPB 105 Keppra 105 Oral 1120 2840 960 Other: Estimated Void Medium Medium Medium # Voids 1 Oxygen Devices in Use Now: None Neurology Exam: General: Well nourished, well developed, and in no acute distress HEENT: Normocephelic/atraumatic, sclera anicteric, mucous membranes moist Neck: Supple Extremities: No clubbing, cyanosis, or edema Neurological Findings: Awake, alert, and oriented to person, place, and time. Speech: fluent without dysarthria, repetition intact Cranial Nerve: PERRL, EOM intact, VFF, no nystagmus, face symmetric bilaterally , facial sensation intact, hearing intact to finger rub bilaterally, palate elevates symmetrically, tongue midline, SCM and Trapezius s/s. Motor: s/s throughout, proximal and distal extremities x4 tone/bulk normal Sensation: intact to LT/PP bilaterally upper and lower extremities Deep Tendon Reflex: 1+ symmetric in the upper/lower extremities, Babinski - down going Finger to nose, rapid alternating movements intact without tremor, no dysdiadochokinesia Gait: intact with good arm swing and stride Result Diagrams: 08/28/19 00:20 08/28/19 00:20 Assessment/Plan Mr. Joselito Cabrera is a 58-year-old with history of cancer who is s/p chemotherapy recently who presented as a transfer from [place] for seizures. The patient had one seizure and was loaded with levetiracetam. The etiology for the seizures are most likely induced by cocaine or due to metastatic disease to the brain. MRI brain with and without contrast showed no evidence of tumors, metastasis, or hippocampal atrophy. The EEG did not show any epileptiform discharges. I discontinued the levetiracetam. He was instructed to come back to the hospital if he has any recurrence. Seizure precautions were discussed with the patient. The patient agreed to stop all drug use including marijuana. I reiterated the [facility] rules and regulation regarding driving restriction after a seizure with a loss of consciousness. The patient will need to follow- up with my colleagues at [facility] Neurology before he is cleared to drive. Depending on any recurrence and the actual cause of the seizure, he may resume driving after he is seizure free for 6-12 months. Follow-up with neurology in 4-6 weeks.
[2019-08-31 11:47] VITALS: BP 115/80
--- NOTE | 2019-08-31 20:47 | DS ---
CC: Dr. Mensah; Dr. Foss * DISCHARGE SUMMARY: DATE OF ADMISSION: 08/28/19 DATE OF DISCHARGE: 08/31/19 PRIMARY CARE PHYSICIAN: His PCP is in [place], but he wants to transition to [facility]. PRIMARY DIAGNOSES: 1. 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 2. Anal fissure. SECONDARY DIAGNOSES: 1. History of liver, colon, and prostate cancer. 2. Hyperthyroidism, on methimazole. CONSULTS: Dr. Mensah and Dr. Foss of Neurology. DISCHARGE MEDICATIONS: 1. Methimazole 5 mg t.i.d. 2. Docusate 200 mg b.i.d. 3. Nicotine patch 14 mg every 24 hours, 1 patch transdermally daily. HISTORY OF PRESENT ILLNESS/HOSPITAL COURSE: Mr. Cabrera is a 58-year-old man with a history of liver, prostate, and colon cancers, all of which he states he is in remission from, also with history of hyperthyroidism, who is sent from [facility] due to new onset of seizures. Per the patient's daughter, he was found unresponsive prior to presentation to [place]. Last known to be well was at approximately 7 a.m. on day before presentation to [place] when he was texting his daughter stating he is not feeling well, but otherwise denied complaints. At 3 a.m. by next morning , the daughter went home and checked on him and noticed that he was unresponsive and there was vomit next to him. He was not speaking or following commands. So, he was sent to [facility] in [place]. Upon arrival to the ER, he had another episode of seizure with rhythmic movements of his upper extremity and he was given a dose of Ativan. Approximately 2 hours later , the patient was alert, asking for something to drink. When the hospitalist was asked to consult on him, they suggested transfer to another facility where there is a neurologist available. The transfer center spoke to Dr. Mensah of Neurology, who accepted the patient to [facility] and recommended the patient to be started on Keppra with an EEG. This was on Friday night on a holiday weekend, so the patient stayed for 3 days, awaiting EEG and brain MRI given his significant history of malignancy. For three days over holiday weekend, the patient had no further seizure-like activities. 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 His pain improved with intermittent doses of naproxen, but he was also given stool softeners, fiber, and encouraged to have sitz bath and enemas. When MRI was done, it was resulted negative for any metastatic disease. An EEG was performed and did not show any epileptiform discharges, so [facility] neurologist, Dr. Foss discontinued the patient's Keppra, as it was likely that the patient's seizures were from cocaine, which was noted to be in his urine toxicology report. The patient was extensively educated on importance of avoiding substance use going forward. He was also educated that he now has a driving restriction and will need to follow up with [facility] Neurology before he is clear to drive. He may need to be seizure free for 6 to 12 months before being cleared to drive again. The patient understands and is able to teach back. REVIEW OF SYSTEMS: On day of discharge, a 10-point review of systems was performed and all symptoms are negative including anal pain. PHYSICAL EXAMINATION: Afebrile, heart rate 78, blood pressure 115/80, respiratory rate 20, oxygen saturation 100% on room air. In general, he is a well-appearing man, in no acute distress, who is alert and interactive. HEENT: Sclerae anicteric. Moist mucous membranes. OP clear. Neck: Supple. Lungs : Clear to auscultation bilaterally. Heart: Regular rate and rhythm. No murmurs, gallops or rubs. Abdomen: Soft, nontender, nondistended. Normoactive bowel sounds. Extremities: Warm and well perfused without evidence of edema. Neuro: A and O x3. Speech fluent. CN II through XII intact. Strength 5/5 in 4 extremities. Sensation intact bilaterally. Gait normal. DIAGNOSTIC STUDIES/LAB DATA: CBC significant for mild anemia to 10.1 with MCV 81, unknown baseline. BMP and LFTs unremarkable. TSH 0 with free T4 3.76. Troponins negative x3. CRP is 6.8. UA clear. Urine toxicology positive for cocaine. Brain MRI normal pre and post contrast MRI of brain. No mesial temporal sclerosis. EEG, essentially normal, awake and sleep EEG. There were no clear epileptiform discharges or electrographic seizures. DISCHARGE PLAN: The patient was discharged to follow up in [facility] and also to follow up with [facility] Neurology. He was educated to no longer drive until he is cleared to do so by Neurology and DMV. He had no changes to his home medications except the addition of nicotine patch, as he was encouraged to quit smoking given his significant malignancy history. He was not continued on antiepileptic drugs. He was extensively educated on return precautions, which include, but are not limited to altered mental status, headache or recurrence of seizure. He should have a healthy diet, low in processed foods and resume activity as tolerated. DISPOSITION: To home. CONDITION: Good. TIME SPENT: Approximately 60 minutes was spent on discharge of this patient, more than half of which was spent with care coordination at bedside for interview and exam. [id number]/CPS #: [id number] LINDA
== END 2019-08-31 13:52 | disposition home or self-care (01) | DRG 53 ==
LOC: ED 22:26 → INTOOBSV 08-28 02:18 → MEDTELE 08-28 02:18
PROVIDERS: ADMIT Internal Medicine; ATTEND Internal Medicine
DX: G40.89 Other seizures (principal); E05.90 Thyrotoxicosis, unspecified without thyrotoxic crisis or storm; K60.2 Anal fissure, unspecified; F14.90 Cocaine use, unspecified, uncomplicated; F17.210 Nicotine dependence, cigarettes, uncomplicated; Z85.46 Personal history of malignant neoplasm of prostate; Z85.038 Personal history of other malignant neoplasm of large intestine; Z85.05 Personal history of malignant neoplasm of liver; Z79.899 Other long term (current) drug therapy; Z91.018 Allergy to other foods
CPT/HCPCS: 36415; 70030; 70553; 80053; 80307; 80320; 80329; 81003; 82140; 83735; 84100; 84439; 84443; 84484; 85025; 86140; 90686; 93005; 95816; 99285; A9270-GY; A9579; G0480; J1650

== ENCOUNTER 2020-01-15 14:55 | Emergency (ER) | payer OTHER ==
[2020-01-15 15:17] VITALS: BP 146/71
--- NOTE | 2020-01-15 15:33 | UC ---
Hand/Wrist HPI - HPI Summary HPI Summary: Pt presents with c/o pain in right hand s/p falling from standing 2 weeks ago while walking at night. pt states he tripped on a branch while walking and had right hand out stretched and landed on a rock. Pt states pain is between 2nd and 3rd distal metacarpal phalangeal joint. - History Of Current Complaint Chief Complaint: UCUpperExtremity Stated Complaint: RIGHT KNUCKLE INJURY Time Seen by Provider: 01/15/20 15:02 Hx Obtained From: Patient ?: No Onset/Duration: Gradual Onset, Lasting Days, Still Present, Worse Since - osnet Severity Initially: Mild Severity Currently: Moderate Pain Intensity: 5 Character Of Pain: Dull, Aching, Stiffness Aggravating Factor(s): Movement Alleviating Factor(s): Rest Associated Signs And Symptoms: Positive: Other - pain Related History: Dominant Hand Right - Risk Factors Compartment Syndrome Risk Factors: Pain - Allergies/Home Medications Allergies/Adverse Reactions: Allergies Allergy/AdvReac Type Severity Reaction Status Date / Time onion Allergy "I can't Verified 01/15/20 15:11 breathe. Everything closes up." pineapple Allergy Hives Verified 01/15/20 15:11 Home Medications: Home Medications 5-Htp 1 tab PO DAILY 08/28/19 [History Confirmed 01/15/20] Docusate CAP* [Colace Cap*] 200 mg PO BID #180 cap 08/31/19 [Rx Confirmed ] Methimazole TAB* [Tapazole TAB*] 5 mg PO TID tab 08/31/19 [Rx Confirmed ] Nicotine PATCH 14 MG/24 HR* 1 patch TRANSDERM DAILY #90 patch 08/31/19 [Rx Confirmed 01/15/20] Ibuprofen TAB* [Advil TAB*] 600 mg PO Q8H PRN 01/15/20 [History Confirmed ] PMH/Surg Hx/FS Hx/Imm Hx Previously Healthy: Yes Other History Of: Negative For: Anticoagulant Therapy - Surgical History Surgical History: Yes Surgery Procedure, Year, and Place: Anal Fissure, 2018 2017; Cholecystectomy, 2014; Prostatectomy, 2009; Liver Lobectomy, 1994; , right tear duct repair- ( cleared woth x-rays by dr casarez) - Family History Known Family History: Positive: Cardiac Disease, Non-Contributory - Social History Occupation: Employed Full-time Lives: With Family Alcohol Use: None Substance Use Type: Marijuana Smoking Status (MU): Heavy Every Day Tobacco Smoker Type: Cigarettes Amount Used/How Often: ~1/4 PPD Length of Time of Smoking/Using Tobacco: Since Age 13 Have You Smoked in the Last Year: Yes - Immunization History Most Recent Influenza Vaccination: 08/28/19 Most Recent Pneumonia Vaccination: not indicated Review of Systems All Other Systems Reviewed And Are Negative: Yes Constitutional: Positive: Negative Skin: Positive: Negative Eyes: Positive: Negative ENT: Positive: Negative Respiratory: Positive: Negative Cardiovascular: Positive: Negative Gastrointestinal: Positive: Negative Genitourinary: Positive: Negative Motor: Positive: Decreased ROM - right hand at 2nd and 3rd distal metacarpal phalangeal joint Neurovascular: Positive: Negative Musculoskeletal: Positive: Arthralgia, Decreased ROM, Edema, Myalgia Neurological/Mental Status: Positive: Negative Psychological: Positive: Negative Is Patient Immunocompromised?: No Physical Exam Triage Information Reviewed: Yes Appearance: Well-Appearing, Thin Vital Signs: Initial Vital Signs Temp 98.1 F 01/15/20 15:13 Pulse 93 01/15/20 15:13 Resp 18 01/15/20 15:13 BP 146/71 01/15/20 15:13 Pulse Ox 100 01/15/20 15:13 Vital Signs Reviewed: Yes Eye Exam: Normal ENT: Positive: Hearing grossly normal Dental Exam: Normal Neck exam: Normal Respiratory: Positive: No respiratory distress Musculoskeletal: Positive: ROM Limited @ - right hand, Edema @ - right hand 2nd and 3rd Neurological Exam: Normal Psychological Exam: Normal Skin Exam: Normal Diagnostics - Radiology No standard instances Radiology Interpretation Completed By: Radiologist - negative for fracture Hand/Wrist Course/Dx - Course Course Of Treatment: Pt was given cock up splint [facility] Im Rn applied splint. Pt was receommended to f /o with DR. Olmstead if needed. Pt was given information on NSAID use, Ice application and f/u - Differential Dx/Diagnosis Differential Diagnosis/HQI/PQRI: Contusion Provider Diagnosis: Contusion of right hand Discharge ED - Sign-Out/Discharge Documenting (check all that apply): Patient Departure All imaging exams completed and their final reports reviewed: Yes - Discharge Plan Condition: Stable Disposition: HOME Patient Education Materials: Contusion in Adults (ED), Hand Sprain (ED) Referrals: No Primary Care Phys,NOPCP [Primary Care Provider] - Martha Olmstead MD [Medical Doctor] - - Billing Disposition and Condition Condition: STABLE Disposition: Home
== END 2020-01-15 16:36 | disposition home or self-care (01) ==
LOC: UCCORT 14:55
DX: S60.221A Contusion of right hand, initial encounter (principal); W01.198A Fall on same level from slipping, tripping and stumbling with subsequent striking against other object, initial encounter; Y93.01 Activity, walking, marching and hiking; Y92.9 Unspecified place or not applicable; Z91.018 Allergy to other foods; F17.210 Nicotine dependence, cigarettes, uncomplicated
CPT/HCPCS: 99212; G0463